=== PATIENT | male | born 1975 | race Caucasian/White ===

== ENCOUNTER 2024-05-31 10:05 | Emergency (ER) | payer BC ==
[~2024-05-31] VITALS: Ht 182.9 cm; Wt 81.6 kg
[2024-05-31 10:20] VITALS: BP 108/57; PULSE 51; RESP 14; TEMP 97.3; O2SAT 98
[2024-05-31 12:15] VITALS: BP 108/57; PULSE 51; RESP 14; TEMP 97.3; O2SAT 98
== END 2024-05-31 12:15 | disposition home or self-care (01) ==
LOC: MED 10:05
DX: R07.89 Other chest pain (principal); R00.2 Palpitations
CPT/HCPCS: 93005; 99283